=== PATIENT | female | born 1995 | race Caucasian/White ===

== ENCOUNTER 2023-08-14 14:08 | Outpatient (RCR) | payer MEDICAID ==
[2023-08-17] MEDS ORDERED: ONDANSETRON HYDR4 MG PO (15:44)
[2023-08-17] MEDS ORDERED: UNISOM25 MG PO (15:44)
[2023-08-17] MEDS ORDERED: PRENATABS FA1 TAB PO (15:45)
== END 2023-09-03 ==
LOC: PT
DX: R51.9 Headache, unspecified (principal); M54.2 Cervicalgia

== ENCOUNTER → 2023-09-03 | Outpatient (RCR) | payer MEDICAID ==
[2023-08-17 15:53] VITALS: BP 93/59
[2023-08-17 18:12] VITALS: BP 93/55
[2023-08-24 18:02] VITALS: BP 96/56
[2023-08-24 18:20] VITALS: BP 93/61
[~2023-09-03] MED LIST: FOLIC ACID 1 MG IV ONE; FOLIC ACID 1 MG IV SCH; MULTIVITAMINS IV ONE; MULTIVITAMINS IV SCH; NS IV ONE; NS IV SCH; ONDANSETRON HYDR4 MG PO; Ondansetron 4 MG/2 ML VIAL IV ONE; Ondansetron 4 MG/2 ML VIAL IV PRN; PRENATABS FA1 TAB PO; THIAMINE IV ONE; THIAMINE IV SCH; UNISOM25 MG PO
[2023-09-03 17:01] VITALS: BP 97/56
[2023-09-03 19:27] VITALS: BP 107/51
== END | disposition home or self-care (01) ==
LOC: AMSURD
DX: O21.9 Vomiting of pregnancy, unspecified (principal); Z3A.00 Weeks of gestation of pregnancy not specified
CPT/HCPCS: J2405; J3411; J3490; J7040